=== PATIENT | male | born 1955 ===

== ENCOUNTER 2018-12-26 17:56 | Emergency (ER) | payer SELFPAY ==
[~2018-12-26] VITALS: Ht 170.2 cm; Wt 82.2 kg
[2018-12-26] MEDS ORDERED: NITROGLYCERIN 0.4 MG SUBLINGUAL TABLET #25 SL ONE ×2 (17:59→18:15)
[2018-12-26] MEDS ORDERED: NITROGLYCERIN 2% (1 GM=INCH) PACKET TP ONE ×2 (17:59→18:15)
[2018-12-26] MEDS ORDERED: ASPIRIN 81 MG CHEWABLE TABLET ONE (17:59)
[2018-12-26] MEDS ORDERED: HEPARIN SODIUM,PORCINE 5,000 UNITS/ML VIAL ONE (18:06)
[2018-12-26] MEDS ORDERED: TICAGRELOR 90 MG TABLET ONE (18:06)
[2018-12-26] MEDS ORDERED: SODIUM CHLORIDE 0.9% 1,000 ML IV ONE (18:15)
[2018-12-26] MEDS ORDERED: HEPARIN SODIUM,PORCINE 5,000 UNITS/ML VIAL IVP ONE (18:15)
[2018-12-26] MEDS ORDERED: ASPIRIN 325 MG TABLET PO ONE (18:15)
[2018-12-26] MEDS ORDERED: TICAGRELOR 90 MG TABLET PO ONE (18:15)
[2018-12-26 18:18] LABS: BASOPHILS % (AUTO) 0.5 % (0.0-2.0); EOSINOPHILS % (AUTO) 0.1 % (1.0-6.0); HEMATOCRIT 46.1 % (41-53); HEMOGLOBIN 15.2 g/dL (13.5-17.5); LYMPHOCYTES # (AUTO) 0.5 K/uL (1.0-4.8); LYMPHOCYTES % (AUTO) 3.9 % (22.0-44.0); MEAN CORPUSCULAR HEMOGLOBIN 29.4 pg (26.0-34.0); MEAN CORPUSCULAR VOLUME 89 fL (80-100); MONOCYTES # (AUTO) 0.8 K/uL (0.1-1.0); MONOCYTES % (AUTO) 5.8 % (2.0-9.0); NEUTROPHILS # (AUTO) 11.8 K/uL (1.8-7.7); PLATELET COUNT (AUTO) 257 K/uL (150-450); RED BLOOD CELL COUNT(AUTO) 5.18 MIL/uL (4.50-5.90); RED CELL DISTRIBUTION WIDTH 13.8 % (11.5-14.5)
[2018-12-26 18:21] VITALS: BP 206/120
[2018-12-26 18:21] LABS: NEUTROPHILS % (AUTO) 89.7 % (40.0-70.0)
[2018-12-26 18:34] LABS: INR 1.5 (0.9-1.1); PROTHROMBIN TIME 14.9 SEC (9.4-11.6)
[2018-12-26 18:49] LABS: ALBUMIN 3.5 g/dL (3.4-5.0); ALKALINE PHOSPHATASE 73 U/L (46-116); ANION GAP 17 mmol/L (8-16); ASPARTATE AMINOTRANSFERASE 318 U/L (15-37); BILIRUBIN,TOTAL 1.4 mg/dL (0.1-1.0); CARBON DIOXIDE 21 mmol/L (22-29); CHLORIDE 82 mmol/L (98-107); CREATININE 1.51 mg/dL (0.60-1.30); GLOMERULAR FILTR. RATE CALC 47 mL/min (>60); GLUCOSE,RANDOM 258 mg/dL (70-110); POTASSIUM 3.1 mmol/L (3.5-5.1); TOTAL PROTEIN, SERUM 7.7 g/dL (6.4-8.2); UREA NITROGEN, BLOOD 13 mg/dL (7-18)
[2018-12-26 19:02] LABS: B-TYPE NATRIURETIC PEPTIDE 667 pg/mL (0-100)
[2018-12-26 19:13] LABS: CREATINE KINASE, TOTAL ONLY 2135 U/L (39-308); SODIUM SERUM 120 mmol/L (136-145)
[2018-12-26 19:20] LABS: PLATELET MORPHOLOGY COMMENT NORMAL
== END 2018-12-26 18:20 | disposition short-term general hospital (02) ==
LOC: EMS 17:59 → EDSEX 17:59 → EMS 18:20
DX: I21.3 ST elevation (STEMI) myocardial infarction of unspecified site (principal); I21.9 Acute myocardial infarction, unspecified
CPT/HCPCS: 36415; 71045; 80053; 82550; 82962; 83880; 84484; 85025; 85610; 85730; 93005; 96374; 99291; J1644